=== PATIENT | female | born 1960 | race Caucasian/White ===

== ENCOUNTER 2017-06-14 10:48 | Emergency (ER) | payer OTHER ==
[~2017-06-14] VITALS: Ht 167.6 cm; Wt 77.1 kg
== END 2017-06-14 20:22 | disposition home or self-care (01) ==
LOC: ER 10:48
DX: N20.0 Calculus of kidney (principal); K44.9 Diaphragmatic hernia without obstruction or gangrene

== ENCOUNTER → 2017-07-19 | Emergency (ER) | payer OTHER ==
[~2017-07-19] VITALS: Ht 167.6 cm; Wt 77.1 kg
== END | disposition home or self-care (01) ==
LOC: ER 13:13
DX: M54.89 Other dorsalgia (principal); N13.6 Pyonephrosis; B34.9 Viral infection, unspecified

== ENCOUNTER → 2024-01-22 15:25 | Outpatient (CLI) | payer OTHER | END | disposition home or self-care (01) | LOC: SONOGRAMA 15:25 | PROVIDERS: ATTEND Pathology Anatomic Pathology & Clinical Pathology | DX: D34 Benign neoplasm of thyroid gland (principal); E07.89 Other specified disorders of thyroid; E04.2 Nontoxic multinodular goiter ==